=== PATIENT | female | born 1970 | race Hispanic/Latino ===

== ENCOUNTER 2017-07-06 07:07 | Day surgery (SDC) | payer BC, OTHER ==
[2017-07-06] MEDS ORDERED: XYLOCAINE 1% 20 mL ONE ×2 (07:47→09:24)
[2017-07-06] MEDS ORDERED: NACL BACTERIOSTATIC INFILTRATI ONE (07:57)
[2017-07-06] MEDS ORDERED: ANCEF/STERILE WATER 2 GM/20 ML IV NR (09:00)
[2017-07-06] MEDS ORDERED: TRANSDERM-SCOP TD NR (09:00)
[2017-07-06] MEDS ORDERED: VERSED IV NR (09:00)
[2017-07-06] MEDS ORDERED: ZOFRAN IV NR (09:00)
[2017-07-06] MEDS ORDERED: LACTATED RINGERS 1,000 ML IV SCH (09:00)
[2017-07-06] MEDS ORDERED: MARCAINE 0.25% INFILTRATI ONE ×2 (09:25→11:20)
--- NOTE | 2017-07-06 09:34 | Procedure Note ---
Date of procedure: 07/06/17 Pre-op diagnosis: lt breast lesion Post-op diagnosis: same Procedure: needle loc Findings: n/a Anesthesia: local Surgeon: CEDRICK MOONEY Estimated blood loss: none Pathology: none Condition: stable (surgery)
--- NOTE | 2017-07-06 09:44 | Mammography Report ---
Left breast needle localization: Repeat mammographic images prior localization confirms presence of a localizing marker just below and medial to the nipple. A free hand approach is chosen using a 3 cm Greenberg needle. The skin was marked and 1% lidocaine used for local anesthesia. Following placement of the needle mammogram images confirm positioning of the needle adjacent to the marker. A localizing wire was then introduced and the needle removed with additional confirmation of positioning. No patient complication encountered.
[2017-07-06] MEDS ORDERED: DIPRIVAN 10 MG/ML IV ONE ×2 (10:01→11:06)
[2017-07-06] MEDS ORDERED: XYLOCAINE MPF 2% ONE ×2 (11:06)
[2017-07-06] MEDS ORDERED: DECADRON ONE (11:09)
[2017-07-06] MEDS ORDERED: SUBLIMAZE ONE (11:12)
[2017-07-06] MEDS ORDERED: NACL 0.9% IR ONE (11:20)
[2017-07-06] MEDS ORDERED: XYLOCAINE 1% 20 mL INFILTRATI ONE (11:20)
[2017-07-06] MEDS ORDERED: ZOFRAN ONE (11:40)
--- NOTE | 2017-07-06 12:12 | Short Stay Summary ---
Short Stay Documentation Date of service: 07/06/17 - History H&P: obtained from office - Allergies and Medications Current Medications: Allergies codeine Allergy (Verified 06/23/17 13:41) Vomiting Home Medications Medication Instructions Recorded Confirmed Last Taken Type Levothyroxine [Synthroid] 125 mcg PO QAM 06/23/17 06/23/17 07/05/17 History Sertraline [Zoloft] 50 mg PO QDAY 06/23/17 06/23/17 07/05/17 History Ibuprofen [Motrin 800 MG tab] 800 mg PO Q8HR PRN #25 tablet 07/06/17 Unknown Rx Active Medications Lactated Ringer's (Lactated Ringers) 1,000 mls @ 125 mls/hr IV DIRECT DEVONTE Last Admin: 07/06/17 09:16 Dose: 125 mls/hr Midazolam HCl (Versed) 2 mg IV PREOP NR Stop: 07/06/17 23:59 Scopolamine (Transderm-Scop) 1 each TD PREOP NR Stop: 07/06/17 23:59 Last Admin: 07/06/17 09:20 Dose: 1 each - Brief post op/procedure progress note Date of procedure: 07/06/17 Pre-op diagnosis: 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 Post-op diagnosis: same Procedure: Left fibroadenoma excisional biopsy Anesthesia: GETA Findings: Left fibroadenoma excisional biopsy at the 6:00 position SA Surgeon: LEONEL DAVID Estimated blood loss: minimal Pathology: list Specimen disposition: to lab Condition: stable - Disposition Condition at discharge: Good Disposition: DC-01 TO HOME OR SELFCARE Short Stay Discharge Plan Activity: other (no heavy lifting) Diet: regular Wound: other (keep incision clean and dry; may shower in 24 hours; no baths, pools or lakes; do not rub or scrub incision) Follow up with: JAMES ATKINSON MD [Primary Care Provider] - 7 Days LEONEL DAVID MD [Staff Physician] - 7 Days Prescriptions: Ibuprofen [Motrin 800 MG tab] 800 mg PO Q8HR PRN #25 tablet PRN Reason: Pain
--- NOTE | 2017-07-06 12:16 | Operative Report ---
Operative Report Operative Report: Date of Service: July 06, 2017 Preoperative diagnosis: Left breast fibroadenoma of the lower outer quadrant Postoperative diagnosis: Same Procedure: Left breast fibroadenoma excisional biopsy Surgeon: Lina Lima M.D. Findings: Known left breast fibroadenoma at the 6:00 position Complications: None Drains: None Estimated blood loss: Minimal Disposition: PACU in good condition Indication for operative procedure: This is a 47-year-old lady with left breast fibroadenoma at the 6:00 position . Recommendation was to proceed with left breast excisional biopsy of fibroadenoma given history of bloody nipple discharge. She wished to proceed with the above procedure. The patient was procedure in detail: The patient was taken to the operating room and was laid supine. General anesthesia was administered. The left breast was prepped and draped in the normal sterile operative fashion. Timeout was performed. A medial periareolar breast incision was made with a 15 blade knife at with dissection taken down to the subcutaneous tissues. The wire was removed. The fibroadenoma was encountered and was dissected free with the aid of the Bovie cautery. The specimen was sent to pathology. Hemostasis was then obtained using the Bovie cautery. The breast cavity was irrigated and suctioned. The deep breast tissues were approximated and closed using interrupted 3-0 Vicryl and skin brought together and closed using a running 4-0 Monocryl followed by skin affix. She tolerated surgery very well and was awakened from anesthesia without any complication and transported to PACU in good condition.
[2017-07-06 15:05] VITALS: BP 120/69
--- NOTE | 2017-07-06 16:18 | Anesthesia Day of Surgery ---
Anesthesia Day of Surgery - Day of Surgery Patient Examined: Yes Patient H&P Reviewed: Yes Patient is NPO: Yes
--- NOTE | 2017-07-06 16:18 | Anesthesia Consultation ---
Anesthesia Consult and Med Hx Date of service: 07/06/17 - Airway Anesthetic Teeth Evaluation: Good ROM Head & Neck: Adequate Mental/Hyoid Distance: Adequate Mallampati Class: Class I - Pulmonary Exam CTA: Yes - Cardiac Exam Cardiac Exam: No Murmur - Pre-Operative Health Status ASA Pre-Surgery Classification: ASA2 Proposed Anesthetic Plan: General - Endocrine Hx Hypothyroidism: Yes - Other Systems Hx Alcohol Use: Yes (SOCIALLY) Hx Cancer: No
--- NOTE | 2017-07-06 16:19 | Post Anesthesia Evaluation ---
- Post Anesthesia Evaluation Patient Participated: Yes Airway Patent: Yes Stable Respiratory Function: Yes Nausea/Vomiting: No Temp > 96.8F: Yes Pain Manageable: Yes Adequeate Hydration: Yes Anesthesia Complications: No Patient on Ventilator: No
== END 2017-07-06 14:10 | disposition home or self-care (01) ==
LOC: OR 07:07
PROVIDERS: ATTEND Surgery
DX: D24.2 Benign neoplasm of left breast (principal); E03.9 Hypothyroidism, unspecified; I10 Essential (primary) hypertension; Z90.710 Acquired absence of both cervix and uterus
CPT/HCPCS: 19125; 19281; 88305; J0690; J1100; J2405; J2704; J3010; J7120; J2250

== ENCOUNTER 2020-06-30 09:46 | Outpatient (CLI) | payer BC ==
--- NOTE | 2020-06-30 14:06 | Mammography Report ---
DIGITAL SCREENING MAMMOGRAM WITH TOMOSYNTHESIS WITH CAD, 06/30/2020 CLINICAL INFORMATION / INDICATION: Routine Screening Mammography. TECHNIQUE: Digital bilateral 2D and 3D mammography with tomosynthesis was obtained in the craniocaud al and mediolateral oblique projections. Computer-Aided Detection (CAD) analysis was used for interp retation of this study. COMPARISON: None available. FINDINGS: Breast Density: The breasts are heterogeneously dense, which may obscure small masses. No dominant mass, suspicious calcifications, or architectural distortion in either breast. IMPRESSION: No mammographic evidence of malignancy. Follow up recommendation: Routine yearly BI-RADS Category 1: Negative. A "normal" or negative report should not discourage follow up or biopsy of a clinically significant f inding. A written summary of these findings will be mailed to the patient. The patient will be entered into a mammography reporting system which will generate a reminder letter for the patient's next appointmen t at the appropriate interval. The [employer] recommends yearly mammograms starting at age 40 and continuing as l arabella as a woman is in good health. Breast MRI is recommended for women with an approximate 20-25% or greater lifetime risk of breast cancer, including women with a strong family history of breast or ova nik cancer or who have been treated for Hodgkin's disease. Signer Name: Chris Lau MD Signed: 06/30/2020 2:01 PM Workstation Name: [id number]
--- NOTE | 2020-06-30 14:14 | Mammography Report ---
Please see combined report from the same date. Signer Name: Boy Lazaro MD Signed: 06/30/2020 2:10 PM Workstation Name: [id number]
== END 2020-06-30 09:47 | disposition home or self-care (01) ==
LOC: MERGE 09:46 → SPVWC 09:46
PROVIDERS: ATTEND Surgery
DX: Z12.31 Encounter for screening mammogram for malignant neoplasm of breast (principal)
CPT/HCPCS: 77063; 77067